=== PATIENT | female | born 1945 | race Two or more races ===

== ENCOUNTER 2017-03-19 09:37 | Outpatient (CLI) | payer OTHER ==
[~2017-03-19 09:37] MED LIST: ATENOLOL25 MG; COZAAR25 MG PO; PREVACID30 MG
== END 2017-03-19 09:50 | disposition home or self-care (01) ==
LOC: LAB 09:37
DX: E07.89 Other specified disorders of thyroid (principal); E11.9 Type 2 diabetes mellitus without complications

== ENCOUNTER 2017-05-21 09:19 | Outpatient (CLI) | payer OTHER | END 2017-05-21 09:23 | disposition home or self-care (01) | LOC: RAD 09:19 | DX: J44.9 Chronic obstructive pulmonary disease, unspecified (principal); M19.90 Unspecified osteoarthritis, unspecified site ==

== ENCOUNTER 2017-06-30 08:34 | Outpatient (CLI) | payer OTHER | END 2017-06-30 15:24 | disposition home or self-care (01) | LOC: RX STUDY 08:34 | DX: R13.19 Other dysphagia (principal); R10.13 Epigastric pain ==

== ENCOUNTER 2017-08-22 09:29 | Outpatient (CLI) | payer OTHER | END 2017-08-22 09:37 | disposition home or self-care (01) | LOC: TOM 09:29 | DX: D30.01 Benign neoplasm of right kidney (principal); D30.02 Benign neoplasm of left kidney ==

== ENCOUNTER 2017-10-28 13:02 | Outpatient (CLI) | payer OTHER | END 2017-10-28 13:08 | disposition home or self-care (01) | LOC: LAB 13:02 | DX: B35.1 Tinea unguium (principal) ==

== ENCOUNTER 2017-11-03 11:26 | Emergency (ER) | payer OTHER ==
[~2017-11-03] VITALS: Ht 157.5 cm; Wt 60.3 kg
== END 2017-11-03 16:32 | disposition home or self-care (01) ==
LOC: ER 11:26
DX: B34.9 Viral infection, unspecified (principal); J11.1 Influenza due to unidentified influenza virus with other respiratory manifestations

== ENCOUNTER 2018-04-27 10:45 | Outpatient (CLI) | payer OTHER | END 2018-04-27 10:59 | disposition home or self-care (01) | LOC: MRI 10:45 | DX: M54.12 Radiculopathy, cervical region (principal) | CPT/HCPCS: 72141 ==

== ENCOUNTER 2018-06-25 11:15 | Outpatient (CLI) | payer OTHER | END 2018-06-25 11:26 | disposition home or self-care (01) | LOC: LAB 11:15 | DX: E03.8 Other specified hypothyroidism (principal); I10 Essential (primary) hypertension; E11.9 Type 2 diabetes mellitus without complications; E78.2 Mixed hyperlipidemia; Z12.11 Encounter for screening for malignant neoplasm of colon ==

== ENCOUNTER 2018-06-26 11:39 | Outpatient (CLI) | payer OTHER | END 2018-06-26 11:51 | disposition home or self-care (01) | LOC: LAB 11:39 | DX: E11.9 Type 2 diabetes mellitus without complications (principal); E03.8 Other specified hypothyroidism; E78.2 Mixed hyperlipidemia; Z12.11 Encounter for screening for malignant neoplasm of colon; I10 Essential (primary) hypertension ==

== ENCOUNTER 2018-07-06 15:07 | Outpatient (CLI) | payer OTHER | END 2018-07-06 15:10 | disposition home or self-care (01) | LOC: LAB 15:07 | DX: N30.00 Acute cystitis without hematuria (principal) ==

== ENCOUNTER 2018-10-19 12:58 | Outpatient (CLI) | payer OTHER | END 2018-10-19 13:00 | disposition home or self-care (01) | LOC: MRI 12:58 | DX: M54.2 Cervicalgia (principal) | CPT/HCPCS: 72141 ==

== ENCOUNTER 2019-04-23 09:48 | Outpatient (CLI) | payer OTHER ==
[~2019-04-23 09:48] MED LIST changes: +TIZANIDINE HCL2 MG PO
== END 2019-04-23 10:00 | disposition home or self-care (01) ==
LOC: MRI 09:48
DX: M54.12 Radiculopathy, cervical region (principal); M43.12 Spondylolisthesis, cervical region
CPT/HCPCS: 72141

== ENCOUNTER 2019-08-24 11:06 | Outpatient (CLI) | payer OTHER | END 2019-08-24 11:27 | disposition home or self-care (01) | LOC: LAB 11:06 → RAD 11:06 → LAB 11:27 | PROVIDERS: ATTEND Ophthalmology | DX: I10 Essential (primary) hypertension (principal); H25.11 Age-related nuclear cataract, right eye; Z01.811 Encounter for preprocedural respiratory examination; Z01.812 Encounter for preprocedural laboratory examination; Z20.828 Contact with and (suspected) exposure to other viral communicable diseases ==

== ENCOUNTER 2019-12-06 10:58 | Outpatient (CLI) | payer OTHER | END 2019-12-06 12:08 | disposition home or self-care (01) | LOC: LAB 10:58 | PROVIDERS: ATTEND Ophthalmology | DX: H25.12 Age-related nuclear cataract, left eye (principal); Z03.818 Encounter for observation for suspected exposure to other biological agents ruled out; Z20.828 Contact with and (suspected) exposure to other viral communicable diseases ==

== ENCOUNTER → 2019-12-08 11:21 | Outpatient (CLI) | payer OTHER | END | disposition home or self-care (01) | LOC: LAB 11:21 | PROVIDERS: ATTEND Ophthalmology | DX: H25.13 Age-related nuclear cataract, bilateral (principal); Z20.828 Contact with and (suspected) exposure to other viral communicable diseases; R03.0 Elevated blood-pressure reading, without diagnosis of hypertension ==

== ENCOUNTER 2019-12-08 14:22 | Outpatient (CLI) | payer OTHER | END 2019-12-08 14:31 | disposition home or self-care (01) | LOC: RAD 14:22 | PROVIDERS: ATTEND Internal Medicine Cardiovascular Disease | DX: J44.9 Chronic obstructive pulmonary disease, unspecified (principal) ==

== ENCOUNTER → 2020-02-03 09:44 | Outpatient (CLI) | payer OTHER ==
[~2020-02-03 09:44] MED LIST changes: +TENORMIN25 MG
== END | disposition home or self-care (01) ==
LOC: LAB 09:44
PROVIDERS: ATTEND Internal Medicine Cardiovascular Disease
DX: E03.8 Other specified hypothyroidism (principal); R00.8 Other abnormalities of heart beat; E04.8 Other specified nontoxic goiter; I10 Essential (primary) hypertension; E11.9 Type 2 diabetes mellitus without complications; E78.2 Mixed hyperlipidemia; Z12.11 Encounter for screening for malignant neoplasm of colon; E55.9 Vitamin D deficiency, unspecified

== ENCOUNTER 2020-02-04 14:58 | Outpatient (CLI) | payer OTHER | END 2020-02-04 15:01 | disposition home or self-care (01) | LOC: LAB 14:58 | PROVIDERS: ATTEND Internal Medicine Cardiovascular Disease | DX: I10 Essential (primary) hypertension (principal); E11.9 Type 2 diabetes mellitus without complications; E03.8 Other specified hypothyroidism; E78.2 Mixed hyperlipidemia; Z12.11 Encounter for screening for malignant neoplasm of colon; E55.9 Vitamin D deficiency, unspecified ==

== ENCOUNTER → 2020-08-22 11:44 | Outpatient (CLI) | payer OTHER | END | disposition home or self-care (01) | LOC: LAB 11:44 | PROVIDERS: ATTEND Internal Medicine Cardiovascular Disease | DX: E03.9 Hypothyroidism, unspecified (principal); I10 Essential (primary) hypertension; E11.9 Type 2 diabetes mellitus without complications; E78.2 Mixed hyperlipidemia; E55.9 Vitamin D deficiency, unspecified; Z12.11 Encounter for screening for malignant neoplasm of colon ==

== ENCOUNTER → 2020-08-23 13:30 | Outpatient (CLI) | payer OTHER | END | disposition home or self-care (01) | LOC: LAB 13:30 | PROVIDERS: ATTEND Internal Medicine Cardiovascular Disease | DX: E78.2 Mixed hyperlipidemia (principal); Z12.11 Encounter for screening for malignant neoplasm of colon; E11.9 Type 2 diabetes mellitus without complications; E55.9 Vitamin D deficiency, unspecified; E03.9 Hypothyroidism, unspecified; I10 Essential (primary) hypertension ==

== ENCOUNTER 2020-11-16 10:03 | Outpatient (CLI) | payer OTHER | END 2020-11-16 10:23 | disposition home or self-care (01) | LOC: LAB 10:03 → RAD 10:03 → LAB 10:23 | PROVIDERS: ATTEND Internal Medicine Cardiovascular Disease | DX: I10 Essential (primary) hypertension (principal); E07.89 Other specified disorders of thyroid ==

== ENCOUNTER 2021-03-30 11:05 | Outpatient (CLI) | payer OTHER | END 2021-03-30 11:19 | disposition home or self-care (01) | LOC: LAB 11:05 | PROVIDERS: ATTEND Psychiatry & Neurology Neurology | DX: D50.8 Other iron deficiency anemias (principal); D55.0 Anemia due to glucose-6-phosphate dehydrogenase [G6PD] deficiency; N39.0 Urinary tract infection, site not specified ==

== ENCOUNTER → 2021-07-03 09:37 | Outpatient (CLI) | payer OTHER | END | disposition home or self-care (01) | LOC: LAB 09:37 | PROVIDERS: ATTEND Psychiatry & Neurology Neurology | DX: D55.0 Anemia due to glucose-6-phosphate dehydrogenase [G6PD] deficiency (principal); D50.8 Other iron deficiency anemias; N39.0 Urinary tract infection, site not specified; E03.9 Hypothyroidism, unspecified ==

== ENCOUNTER 2021-12-14 10:04 | Outpatient (CLI) | payer OTHER | END 2021-12-14 10:05 | disposition home or self-care (01) | LOC: LAB 10:04 | PROVIDERS: ATTEND Internal Medicine Cardiovascular Disease | DX: I10 Essential (primary) hypertension (principal); E11.9 Type 2 diabetes mellitus without complications; E03.9 Hypothyroidism, unspecified; E78.2 Mixed hyperlipidemia; Z12.11 Encounter for screening for malignant neoplasm of colon ==

== ENCOUNTER 2021-12-17 10:56 | Outpatient (CLI) | payer OTHER | END 2021-12-17 15:22 | disposition home or self-care (01) | LOC: LAB 10:56 | PROVIDERS: ATTEND Internal Medicine Cardiovascular Disease | DX: I10 Essential (primary) hypertension (principal); E11.9 Type 2 diabetes mellitus without complications; E03.9 Hypothyroidism, unspecified; E78.2 Mixed hyperlipidemia; Z12.11 Encounter for screening for malignant neoplasm of colon ==

== ENCOUNTER 2022-04-04 10:42 | Outpatient (CLI) | payer OTHER | END 2022-04-04 10:47 | disposition home or self-care (01) | LOC: LAB 10:42 | PROVIDERS: ATTEND Internal Medicine Cardiovascular Disease | DX: I10 Essential (primary) hypertension (principal); E11.9 Type 2 diabetes mellitus without complications; E03.9 Hypothyroidism, unspecified; E78.2 Mixed hyperlipidemia; Z12.11 Encounter for screening for malignant neoplasm of colon; E55.9 Vitamin D deficiency, unspecified ==

== ENCOUNTER 2022-04-05 10:30 | Outpatient (CLI) | payer OTHER | END 2022-04-05 10:32 | disposition home or self-care (01) | LOC: LAB 10:30 | PROVIDERS: ATTEND Internal Medicine Cardiovascular Disease | DX: I10 Essential (primary) hypertension (principal); E11.9 Type 2 diabetes mellitus without complications; E03.9 Hypothyroidism, unspecified; E78.2 Mixed hyperlipidemia; Z12.11 Encounter for screening for malignant neoplasm of colon; E55.9 Vitamin D deficiency, unspecified ==

== ENCOUNTER 2022-04-22 10:18 | Outpatient (CLI) | payer OTHER | END 2022-04-22 10:21 | disposition home or self-care (01) | LOC: SONOGRAMA 10:18 | PROVIDERS: ATTEND Internal Medicine Gastroenterology | DX: R10.9 Unspecified abdominal pain (principal) ==

== ENCOUNTER 2022-09-02 11:07 | Emergency (ER) | payer OTHER ==
[~2022-09-02] VITALS: Ht 160 cm; Wt 68.0 kg
[2022-09-02] MEDS ORDERED: MOLNUPIRAVIR (200 MG PO ×3 (14:14→14:15)
== END 2022-09-02 14:23 | disposition home or self-care (01) ==
LOC: ER 11:07
DX: U07.1 COVID-19 (principal); G30.8 Other Alzheimer's disease; F02.80 Dementia in other diseases classified elsewhere, unspecified severity, without behavioral disturbance, psychotic disturbance, mood disturbance, and anxiety; M62.830 Muscle spasm of back

== ENCOUNTER 2022-09-03 09:12 | Outpatient (CLI) | payer OTHER ==
[~2022-09-03 09:12] MED LIST changes: +MOLNUPIRAVIR (200 MG PO
== END 2022-09-03 09:15 | disposition home or self-care (01) ==
LOC: LAB 09:12
PROVIDERS: ATTEND General Practice
DX: J02.9 Acute pharyngitis, unspecified (principal); Z20.822 Contact with and (suspected) exposure to COVID-19; A49.3 Mycoplasma infection, unspecified site; J06.9 Acute upper respiratory infection, unspecified

== ENCOUNTER 2023-01-14 09:28 | Outpatient (CLI) | payer OTHER ==
[2023-01-14 10:45] LABS: HEMATOCRIT 36.5 % (36.0-45.00); HEMOGLOBIN 12.1 g/dL (12.0-15.00); MEAN CELL VOLUME 84.1 fL (80.00-100.00); MEAN CORPUSCULAR HEMOGLOBIN 27.9 pg (27.00-32.0); MEAN CORPUSCULAR HGB CONC 33.1 g/dl (32.0-36.0); PLATELET COUNT 234 K/uL (150-450); RED BLOOD COUNT 4.34 M/uL (4.00-6.00); RED CELL DISTRIBUTION WIDTH 13.3 % (11.5-14.5)
[2023-01-14 11:27] LABS: PH,URINE 6.5 (5.0-8.0); URINE APPEARANCE Clear; URINE BILIRRUBIN Negative (NEGATIVE); URINE BLOOD Negative; URINE COLOR Yellow; URINE GLUCOSE Negative (NEGATIVE); URINE LEUKOCYTE Trace; URINE NITRATE Negative; URINE PROTEIN Trace (NEGATIVE)
[2023-01-14 11:32] LABS: URINE BACTERIA 12.5 uL (0.0-1933); URINE EPITHELIAL CELLS 3.2 uL (0.0-38.8); URINE RBC 11.9 uL (0.0-20.8); URINE WBC 2.9 uL (0.0-23.2)
[2023-01-14 12:18] LABS: ALBUMIN 3.7 gm/dL (3.4-5.0); BILIRUBIN TOTAL 0.44 mg/dL (0.3-1.2); CHOL HDL RATIO 1.9 (0-5.0); CREATININE SERUM 0.73 mg/dL (0.55-1.02); GFR 76.9; GLOBULINA 3.4 G/DL (2.4-3.5); POTASSIUM 4.47 mEq/L (3.5-5.1); T4 TOTAL 11.32 UG/DL (4.8-13.9); TOTAL PROTEIN 7.1 gm/dL (6.4-8.2); TSH 3.68 uIU/mL (0.358-3.74)
== END 2023-01-14 09:29 | disposition home or self-care (01) ==
LOC: LAB 09:28
PROVIDERS: ATTEND Internal Medicine Cardiovascular Disease
DX: E11.9 Type 2 diabetes mellitus without complications (principal); E03.9 Hypothyroidism, unspecified; E78.2 Mixed hyperlipidemia

== ENCOUNTER → 2023-04-02 09:36 | Outpatient (CLI) | payer OTHER ==
[2023-04-02 10:38] LABS: HEMOGLOBIN 12.6 g/dL (12.0-15.00); MEAN CELL VOLUME 84.7 fL (80.00-100.00); MEAN CORPUSCULAR HEMOGLOBIN 28.7 pg (27.00-32.0); MEAN CORPUSCULAR HGB CONC 33.9 g/dl (32.0-36.0); PLATELET COUNT 270 K/uL (150-450); RED BLOOD COUNT 4.37 M/uL (4.00-6.00); RED CELL DISTRIBUTION WIDTH 13.6 % (11.5-14.5)
[2023-04-02 10:55] LABS: PH,URINE 5.5 (5.0-8.0); URINE APPEARANCE Clear; URINE BILIRRUBIN Negative (NEGATIVE); URINE BLOOD Negative; URINE COLOR Yellow; URINE GLUCOSE Negative (NEGATIVE); URINE LEUKOCYTE Trace; URINE NITRATE Negative; URINE PROTEIN Trace (NEGATIVE); URINE UROBILINOGEN 0.2 E.U./dl
[2023-04-02 10:57] LABS: URINE EPITHELIAL CELLS 13.5 uL (0.0-38.8); URINE RBC 7.1 uL (0.0-20.8)
[2023-04-02 11:54] LABS: ALBUMIN 3.8 gm/dL (3.4-5.0); BILIRUBIN TOTAL 0.36 mg/dL (0.3-1.2); CALCIUM 9.4 mg/dL (8.5-10.1); CHOL HDL RATIO 1.9 (0-5.0); CREATININE SERUM 0.76 mg/dL (0.55-1.02); GFR 73.41; GLOBULINA 3.2 G/DL (2.4-3.5); POTASSIUM 4.25 mEq/L (3.5-5.1); T4 TOTAL 11.87 UG/DL (4.8-13.9)
[2023-04-02 11:55] LABS: TSH 4.91 uIU/mL (0.358-3.74)
== END | disposition home or self-care (01) ==
LOC: LAB 09:36
PROVIDERS: ATTEND Psychiatry & Neurology Neurology
DX: D55.0 Anemia due to glucose-6-phosphate dehydrogenase [G6PD] deficiency (principal); E78.2 Mixed hyperlipidemia; N39.0 Urinary tract infection, site not specified; E03.9 Hypothyroidism, unspecified

== ENCOUNTER 2024-03-14 15:00 | Emergency (ER) | payer OTHER ==
[~2024-03-14] VITALS: Ht 167.6 cm; Wt 81.6 kg
[~2024-03-14 15:00] MED LIST changes: +ARICEPT10 MG; +DULOXETINE HCL40 MG; +ECOTRIN81 MG; +ESOMEPRAZOLE MA40 MG; +IRBESARTAN-HCT1 EAC1; +LIPITOR20 MG; +NABUMETONE500 MG; +NAMENDA XR28 MG
[2024-03-14 16:22] VITALS: BP 140/80; O2SAT 95
[2024-03-14] MEDS ORDERED: LORazepam 2 MG/ML VIAL IM STA (16:52)
[2024-03-14] MEDS ORDERED: LORazepam 2 MG/ML VIAL ONE (17:04)
== END 2024-03-14 18:36 | disposition home or self-care (01) ==
LOC: ER 15:03
DX: R53.81 Other malaise (principal); F41.9 Anxiety disorder, unspecified
CPT/HCPCS: 96372; 99282; J3490